=== PATIENT | male | born 1965 | race Two or more races ===

== ENCOUNTER → 2022-11-05 | Outpatient (CLI) | payer OTHER ==
[~2022-11-05] VITALS: Ht 177.8 cm; Wt 125.5 kg
[2022-11-05 14:13] VITALS: BP 105/66
== END | disposition home or self-care (01) ==
LOC: SRCNTR 14:12
PROVIDERS: ATTEND Internal Medicine
DX: I49.3 Ventricular premature depolarization (principal); R94.31 Abnormal electrocardiogram [ECG] [EKG]; I12.9 Hypertensive chronic kidney disease with stage 1 through stage 4 chronic kidney disease, or unspecified chronic kidney disease; E11.22 Type 2 diabetes mellitus with diabetic chronic kidney disease; N18.30 Chronic kidney disease, stage 3 unspecified; E78.5 Hyperlipidemia, unspecified; I73.9 Peripheral vascular disease, unspecified; R00.0 Tachycardia, unspecified; Z95.820 Peripheral vascular angioplasty status with implants and grafts
CPT/HCPCS: 93005; G0463

== ENCOUNTER → 2022-11-25 | Outpatient (CLI) | payer OTHER ==
[~2022-11-25] MED LIST: ASPI-1450 PO; ATOR40TA28 PO; BRIM5DRO10 OU; CALC500T37 PO; CHOL25TA4 PO; CLOP75TA60 PO; DEXT1TAB48 CHEW; DORZ10DR10 OU; EMPA25TA3 PO; HYDR25TA2 PO; INSLAN SQ; INSREG SQ; LISI-894 PO; NORT10 PO; SITA100 PO; SODI5POW3 PO; SODI650T33 PO; XALA2.5OS OU
== END | disposition home or self-care (01) ==
LOC: RADPV 09:31
PROVIDERS: ATTEND Internal Medicine
DX: I11.9 Hypertensive heart disease without heart failure (principal); R00.2 Palpitations
CPT/HCPCS: 93306

== ENCOUNTER → 2023-05-06 | Outpatient (CLI) | payer OTHER ==
[2023-05-06 14:13] VITALS: BP 128/77; PULSE 63; RESP 18; TEMP 98.8; O2SAT 98
== END | disposition home or self-care (01) ==
LOC: SRCNTR 14:02
PROVIDERS: ATTEND Internal Medicine
DX: Z09 Encounter for follow-up examination after completed treatment for conditions other than malignant neoplasm (principal); I42.9 Cardiomyopathy, unspecified; I49.3 Ventricular premature depolarization; E78.5 Hyperlipidemia, unspecified; I12.9 Hypertensive chronic kidney disease with stage 1 through stage 4 chronic kidney disease, or unspecified chronic kidney disease; E11.22 Type 2 diabetes mellitus with diabetic chronic kidney disease; N18.2 Chronic kidney disease, stage 2 (mild); I73.9 Peripheral vascular disease, unspecified
CPT/HCPCS: G0463; Z7500

== ENCOUNTER → 2023-07-30 | Outpatient (CLI) | payer OTHER ==
[~2023-07-30] MED LIST changes: +PERFLUTREN PROTEIN-A MICROSPHERES 0.22 MG/ML 3 ML VIAL IVP ONE
== END | disposition home or self-care (01) ==
LOC: RADPV 08:51
PROVIDERS: ATTEND Internal Medicine
DX: I08.1 Rheumatic disorders of both mitral and tricuspid valves (principal); R00.0 Tachycardia, unspecified
CPT/HCPCS: C8929; Q9967; C8928